=== PATIENT | male | born 1960 | race Caucasian/White ===

== ENCOUNTER 2017-04-02 08:03 | Emergency (ER) | payer OTHER ==
[~2017-04-02] VITALS: Ht 177.8 cm; Wt 88.5 kg
[2017-04-02] MEDS ORDERED: AMITRIPTYLINE100 M1 PO (08:13)
[2017-04-02] MEDS ORDERED: ZESTRIL40 MG PO (08:13)
[2017-04-02] MEDS ORDERED: ROBAXIN-750750 MG PO (08:13)
[2017-04-02] MEDS ORDERED: NORVASC5 MG PO (08:14)
[2017-04-02] MEDS ORDERED: VESICARE10 MG PO (08:14)
[2017-04-02] MEDS ORDERED: BUSPIRONE15 MG PO (08:14)
[2017-04-02] MEDS ORDERED: OMEPRAZOLE40 MG PO (08:15)
[2017-04-02] MEDS ORDERED: MELOXICAM15 MG PO (08:15)
[2017-04-02 08:16] LABS: BASO % 0.2 % (0.0-1.0); EOS # 0.1 10*3/uL (0.0-0.4); EOS % 0.9 % (1.0-4.0); HEMATOCRIT 44.5 % (42.0-52.0); HEMOGLOBIN 14.9 g/dl (14.0-18.0); LYMPH # 4.6 10*3/uL (1.3-4.4); MEAN CELL VOLUME 89.2 fl (80.0-94.0); MEAN CORPUSCULAR HGB 29.9 pg (27.0-31.0); MEAN CORPUSCULAR HGB CONC 33.5 g/dl (33.0-37.0); MEAN PLATELET VOLUME 9.4 fl (9.6-12.3); MONO # 1.2 10*3/uL (0.1-1.0); MONO % 8.6 % (3.0-9.0); NEUT # 7.9 10*3/uL (2.3-7.9); NEUT % 56.9 % (47.0-73.0); PLATELET COUNT AUTOMATED 316 10*3/uL (130-400); RED BLOOD COUNT 4.99 10*6/uL (4.50-5.90); RED CELL DISTRI WIDTH 14.3 % (0-14.5); WHITE BLOOD COUNT 13.9 10*3/uL (4.8-10.8)
[2017-04-02 08:26] LABS: ACT PARTIAL THROMBO TIME 20.8 SECONDS (20.8-31.5); INTERNATIONAL NORM RATIO 1.1 (2.0-3.5)
[2017-04-02 08:34] LABS: ALBUMIN 3.8 gm/dl (3.1-4.5); ALKALINE PHOSPHATASE 64 U/L (45-117); BUN 19 mg/dl (7-24); CHLORIDE 105 mmol/L (98-107); CREATININE 0.96 mg/dL (0.70-1.30); MAGNESIUM 2.3 mg/dL (1.5-2.1); SGOT/AST 10 IU/L (3-35); SGPT/ALT 22 U/L (12-78); SODIUM 139 mmol/L (136-145); TOTAL PROTEIN 7.9 gm/dL (6.4-8.2)
[2017-04-02 08:38] LABS: TROPONIN I 0.106 ng/ml (<0.045)
== END 2017-04-02 10:56 | disposition short-term general hospital (02) ==
LOC: ED 08:03
PROVIDERS: Emergency Medicine
DX: I21.4 Non-ST elevation (NSTEMI) myocardial infarction (principal); I10 Essential (primary) hypertension; F17.200 Nicotine dependence, unspecified, uncomplicated; Z79.899 Other long term (current) drug therapy; Z85.46 Personal history of malignant neoplasm of prostate

== ENCOUNTER 2020-06-18 12:14 | Emergency (ER) | payer OTHER ==
[~2020-06-18] VITALS: Ht 175.2 cm; Wt 97.1 kg
[~2020-06-18 12:14] MED LIST: ABILIFY5 MG PO; AMITRIPTYLINE100 M1 PO; BRILINTA90 M1 PO; BUSPIRONE15 MG PO; IMDUR SA30 MG PO; MELOXICAM15 MG PO; NORVASC5 MG PO; OMEPRAZOLE40 MG PO; OXYBUTYNIN5 MG PO; ROBAXIN-750750 MG PO; ROSUVASTATIN CA20 MG PO; TOPROL XL25 MG PO; TYLENOL325 M1 PO; VESICARE10 MG PO; ZESTRIL40 MG PO
== END 2020-06-18 13:16 | disposition home or self-care (01) ==
LOC: ED 12:14
DX: J02.9 Acute pharyngitis, unspecified (principal); Z20.828 Contact with and (suspected) exposure to other viral communicable diseases; Z79.899 Other long term (current) drug therapy

== ENCOUNTER 2020-10-18 19:01 | Observation (INO) | payer OTHER ==
[2020-10-18] VITALS (11 sets, daily range): BP systolic 115–166; BP diastolic 77–110
[~2020-10-18] VITALS: Ht 177.8 cm; Wt 92.2 kg
[2020-10-18 19:29] LABS: BASO % 0.4 % (0.0-1.0); EOS # 0.1 10*3/uL (0.0-0.4); EOS % 1.2 % (1.0-4.0); HEMATOCRIT 43.4 % (42.0-52.0); LYMPH # 2.7 10*3/uL (1.3-4.4); LYMPH % 35.5 % (27.0-41.0); MEAN CELL VOLUME 89.5 fl (80.0-94.0); MEAN CORPUSCULAR HGB 29.1 pg (27.0-31.0); MEAN CORPUSCULAR HGB CONC 32.5 g/dl (33.0-37.0); MONO # 0.7 10*3/uL (0.1-1.0); MONO % 8.7 % (3.0-9.0); NEUT # 4.1 10*3/uL (2.3-7.9); NEUT % 54.1 % (47.0-73.0); PLATELET COUNT AUTOMATED 299 10*3/uL (130-400); RED BLOOD COUNT 4.85 10*6/uL (4.50-5.90); WHITE BLOOD COUNT 7.5 10*3/uL (4.8-10.8)
[2020-10-18 19:40] LABS: ACT PARTIAL THROMBO TIME 27.9 SECONDS (20.0-32.1); INTERNATIONAL NORM RATIO 1.1 (2.0-3.5)
[2020-10-18 19:51] LABS: ALBUMIN 4.1 gm/dl (3.1-4.5); ALKALINE PHOSPHATASE 54 U/L (45-117); BUN 12 mg/dl (7-24); CHLORIDE 105 mmol/L (98-107); CREATININE 0.99 mg/dL (0.70-1.30); SGOT/AST 12 IU/L (3-35); SGPT/ALT 29 U/L (12-78); SODIUM 140 mmol/L (136-145); TOTAL PROTEIN 8.4 gm/dL (6.4-8.2)
[2020-10-18 19:52] LABS: TROPONIN I < 0.015 ng/ml (<0.045)
[2020-10-19 00:30] VITALS: BP 140/88
[2020-10-19] MEDS ORDERED: AMITRIPTYLINE100 M1 PO (00:39)
[2020-10-19] MEDS ORDERED: GLUCOPHAGE500 M1 PO (00:41)
[2020-10-19 06:24] LABS: BASO % 0.5 % (0.0-1.0); EOS # 0.2 10*3/uL (0.0-0.4); EOS % 2.6 % (1.0-4.0); HEMATOCRIT 41.2 % (42.0-52.0); LYMPH % 40.5 % (27.0-41.0); MEAN CORPUSCULAR HGB 28.6 pg (27.0-31.0); MEAN CORPUSCULAR HGB CONC 31.8 g/dl (33.0-37.0); MEAN PLATELET VOLUME 9.8 fl (9.6-12.3); MONO # 0.8 10*3/uL (0.1-1.0); MONO % 10.8 % (3.0-9.0); NEUT # 3.4 10*3/uL (2.3-7.9); NEUT % 45.5 % (47.0-73.0); PLATELET COUNT AUTOMATED 302 10*3/uL (130-400); RED BLOOD COUNT 4.58 10*6/uL (4.50-5.90); RED CELL DISTRI WIDTH 15.3 % (0-14.5); WHITE BLOOD COUNT 7.4 10*3/uL (4.8-10.8)
[2020-10-19 06:57] LABS: BUN 15 mg/dl (7-24); CHLORIDE 108 mmol/L (98-107); CHOLESTEROL 118 mg/dL (<200); CREATININE 0.83 mg/dL (0.70-1.30); HDL CHOLESTEROL 52 mg/dl (40-60); LDL CHOLESTEROL 42 mg/dL (9-159); POTASSIUM 4.1 mmol/L (3.5-5.1); SODIUM 140 mmol/L (136-145); TRIGLYCERIDES 122 mg/dl (<150); VLDL CHOLESTEROL 24 mg/dL (6-40)
[2020-10-19 08:00] VITALS: BP 113/69
[2020-10-19] MEDS ORDERED: BUSPIRONE15 MG PO (09:36)
[2020-10-19] MEDS ORDERED: CLOPIDOGREL75 MG PO (09:36)
[2020-10-19] MEDS ORDERED: MELOXICAM15 MG PO (09:37)
[2020-10-19 12:00] VITALS: BP 111/64
[2020-10-19 16:00] VITALS: BP 97/71
[2020-10-19 20:00] VITALS: BP 114/72
[2020-10-20] VITALS: BP 107/65
[2020-10-20 06:08] LABS: BASO # 0.1 10*3/uL (0.0-0.1); BASO % 0.7 % (0.0-1.0); EOS # 0.2 10*3/uL (0.0-0.4); EOS % 3.4 % (1.0-4.0); HEMATOCRIT 41.3 % (42.0-52.0); LYMPH % 43.2 % (27.0-41.0); MEAN CELL VOLUME 89.6 fl (80.0-94.0); MEAN CORPUSCULAR HGB 28.9 pg (27.0-31.0); MEAN CORPUSCULAR HGB CONC 32.2 g/dl (33.0-37.0); MEAN PLATELET VOLUME 9.6 fl (9.6-12.3); MONO # 0.9 10*3/uL (0.1-1.0); MONO % 12.6 % (3.0-9.0); NEUT # 2.8 10*3/uL (2.3-7.9); NEUT % 39.8 % (47.0-73.0); PLATELET COUNT AUTOMATED 293 10*3/uL (130-400); RED BLOOD COUNT 4.61 10*6/uL (4.50-5.90); RED CELL DISTRI WIDTH 15.5 % (0-14.5)
[2020-10-20 06:15] LABS: CHLORIDE 107 mmol/L (98-107); POTASSIUM 3.9 mmol/L (3.5-5.1); SODIUM 138 mmol/L (136-145)
[2020-10-20 06:18] LABS: CREATININE 0.92 mg/dL (0.70-1.30)
[2020-10-20 06:23] LABS: BUN 25 mg/dl (7-24)
[2020-10-20 08:00] VITALS: BP 112/65
[2020-10-20 12:00] VITALS: BP 134/85
[2020-10-20] MEDS ORDERED: NITROSTAT0.3 M1 SL (13:59)
== END 2020-10-20 14:14 | disposition home or self-care (01) ==
LOC: ED 19:01 → EDHOLD 21:42 → 4E 23:27
PROVIDERS: Emergency Medicine; Internal Medicine; ADMIT Family Medicine; ATTEND Family Medicine
DX: R07.89 Other chest pain (principal); R06.09 Other forms of dyspnea; R00.0 Tachycardia, unspecified; I25.10 Atherosclerotic heart disease of native coronary artery without angina pectoris; I10 Essential (primary) hypertension; E78.5 Hyperlipidemia, unspecified; R73.9 Hyperglycemia, unspecified; F32.9 Major depressive disorder, single episode, unspecified; G89.29 Other chronic pain; M54.9 Dorsalgia, unspecified; F41.9 Anxiety disorder, unspecified; R44.3 Hallucinations, unspecified; D64.9 Anemia, unspecified; E83.41 Hypermagnesemia; E55.9 Vitamin D deficiency, unspecified; Z98.890 Other specified postprocedural states; Z85.46 Personal history of malignant neoplasm of prostate; Z95.5 Presence of coronary angioplasty implant and graft

== ENCOUNTER 2021-02-13 21:12 | Inpatient (IN) | payer OTHER ==
[~2021-02-13] VITALS: Ht 177.8 cm; Wt 88.6 kg
[~2021-02-13 21:12] MED LIST changes: +CLOPIDOGREL75 MG PO; +GLUCOPHAGE500 M1 PO; +NITROSTAT0.3 M1 SL
[2021-02-13 21:36] VITALS: BP 134/79
[2021-02-13 22:50] LABS: BASO # 0.1 10*3/uL (0.0-0.1); BASO % 0.4 % (0.0-1.0); EOS # 0.3 10*3/uL (0.0-0.4); EOS % 2.2 % (1.0-4.0); HEMATOCRIT 40.4 % (42.0-52.0); LYMPH # 2.7 10*3/uL (1.3-4.4); LYMPH % 22.7 % (27.0-41.0); MEAN CELL VOLUME 89.2 fl (80.0-94.0); MEAN CORPUSCULAR HGB 29.1 pg (27.0-31.0); MEAN CORPUSCULAR HGB CONC 32.7 g/dl (33.0-37.0); MEAN PLATELET VOLUME 9.2 fl (9.6-12.3); MONO # 1.3 10*3/uL (0.1-1.0); MONO % 11.4 % (3.0-9.0); NEUT # 7.4 10*3/uL (2.3-7.9); NEUT % 63.1 % (47.0-73.0); PLATELET COUNT AUTOMATED 284 10*3/uL (130-400); RED BLOOD COUNT 4.53 10*6/uL (4.50-5.90); RED CELL DISTRI WIDTH 13.5 % (0-14.5); WHITE BLOOD COUNT 11.8 10*3/uL (4.8-10.8)
[2021-02-13 23:08] LABS: ALBUMIN 3.6 gm/dl (3.1-4.5); ALKALINE PHOSPHATASE 53 U/L (45-117); BUN 44 mg/dl (7-24); CHLORIDE 104 mmol/L (98-107); CREATININE 3.81 mg/dL (0.70-1.30); LIPASE 185 U/L (73-393); POTASSIUM 3.6 mmol/L (3.5-5.1); SGOT/AST 23 IU/L (3-35); SGPT/ALT 25 U/L (12-78); SODIUM 135 mmol/L (136-145); TOTAL PROTEIN 7.7 gm/dL (6.4-8.2)
[2021-02-13 23:09] LABS: ETHYL ALCOHOL < 3.0 mg/dl (<3); TROPONIN I < 0.015 ng/ml (<0.045)
[2021-02-14] VITALS (9 sets, daily range): BP systolic 82–132; BP diastolic 50–68
[2021-02-14] MEDS ORDERED: MELATONIN3 MG PO (03:06)
[2021-02-14 05:47] LABS: ALBUMIN 3.6 gm/dl (3.1-4.5); CREATININE 4.12 mg/dL (0.70-1.30); POTASSIUM 3.1 mmol/L (3.5-5.1)
[2021-02-14 06:17] LABS: BASO # 0.1 10*3/uL (0.0-0.1); BASO % 0.5 % (0.0-1.0); EOS # 0.3 10*3/uL (0.0-0.4); EOS % 2.9 % (1.0-4.0); HEMATOCRIT 37.4 % (42.0-52.0); LYMPH # 3.3 10*3/uL (1.3-4.4); LYMPH % 34.8 % (27.0-41.0); MEAN CORPUSCULAR HGB 29.4 pg (27.0-31.0); MEAN CORPUSCULAR HGB CONC 32.4 g/dl (33.0-37.0); MEAN PLATELET VOLUME 9.8 fl (9.6-12.3); MONO # 1.1 10*3/uL (0.1-1.0); MONO % 11.9 % (3.0-9.0); NEUT # 4.7 10*3/uL (2.3-7.9); NEUT % 49.6 % (47.0-73.0); PLATELET COUNT AUTOMATED 256 10*3/uL (130-400); RED BLOOD COUNT 4.11 10*6/uL (4.50-5.90); RED CELL DISTRI WIDTH 13.7 % (0-14.5); WHITE BLOOD COUNT 9.5 10*3/uL (4.8-10.8)
[2021-02-14 09:19] LABS: BILIRUBIN Negative (Negative); BLOOD 1+ (Negative); CLARITY Cloudy (Clear); COLOR Yellow (Yellow); GLUCOSE Negative (Negative); KETONE Negative (Negative); LEUKO ESTERASE 1+ (Negative); NITRITE Negative (Negative); SPECIFIC GRAVITY 1.015 (1.001-1.030)
[2021-02-14 09:27] LABS: URINE CANNABINOIDS (THC) < 50 (50ng/ml); URINE METHADONE < 300 (300ng/ml); URINE OPIATES < 300 (300ng/ml)
[2021-02-14 09:29] LABS: URINE PHENCYCLIDINE < 25 (25ng/ml)
[2021-02-14 09:30] LABS: URINE CHLORIDE, RANDOM < 10 mmol/L
[2021-02-14 09:35] LABS: BACTERIA 2+; EPITHELIAL CELLS 16-20; WBC 21-30 wbc/hpf (0-5)
[2021-02-14 09:40] LABS: URINE AMPHETAMINES > 1000 (1000ng/ml); URINE BARBITURATES < 200 (200ng/ml); URINE BENZODIAZEPINES < 200 (200ng/ml); URINE COCAINE < 300 (300ng/ml)
[2021-02-15] VITALS: BP 117/69
[2021-02-15 04:44] LABS: BASO % 0.5 % (0.0-1.0); EOS # 0.2 10*3/uL (0.0-0.4); EOS % 3.8 % (1.0-4.0); HEMATOCRIT 35.5 % (42.0-52.0); LYMPH # 2.3 10*3/uL (1.3-4.4); LYMPH % 36.1 % (27.0-41.0); MEAN CELL VOLUME 89.9 fl (80.0-94.0); MEAN CORPUSCULAR HGB 29.6 pg (27.0-31.0); MEAN PLATELET VOLUME 9.4 fl (9.6-12.3); MONO # 0.7 10*3/uL (0.1-1.0); MONO % 10.6 % (3.0-9.0); NEUT # 3.1 10*3/uL (2.3-7.9); NEUT % 48.8 % (47.0-73.0); PLATELET COUNT AUTOMATED 224 10*3/uL (130-400); RED BLOOD COUNT 3.95 10*6/uL (4.50-5.90); RED CELL DISTRI WIDTH 13.4 % (0-14.5); WHITE BLOOD COUNT 6.4 10*3/uL (4.8-10.8)
[2021-02-15 04:59] LABS: CHLORIDE 114 mmol/L (98-107); CREATININE 1.18 mg/dL (0.70-1.30); POTASSIUM 3.8 mmol/L (3.5-5.1); SODIUM 139 mmol/L (136-145)
[2021-02-15 05:04] LABS: BUN 28 mg/dl (7-24)
[2021-02-15 08:00] VITALS: BP 124/73
[2021-02-15 12:00] VITALS: BP 130/71
[2021-02-15] MEDS ORDERED: MECLIZINE HCL25 M2 PO (12:03)
[2021-02-15] MEDS ORDERED: VITAMIN E400 UNI3 PO (12:13)
[2021-02-15] MEDS ORDERED: ROPINIROLE HY0.25 MG PO (12:13)
[2021-02-15] MEDS ORDERED: MIRTAZAPINE15 M2 PO (12:13)
== END 2021-02-15 13:17 | disposition home or self-care (01) | DRG 640 ==
LOC: ED 21:12 → 4E 02-14 01:27 → EDHOLD 02-14 01:27 → 4E 02-14 01:53
PROVIDERS: Internal Medicine; Physician Assistant; Student in an Organized Health Care Education/Training Program; ADMIT Internal Medicine; ATTEND Internal Medicine
DX: E86.0 Dehydration (principal); N17.0 Acute kidney failure with tubular necrosis; E87.1 Hypo-osmolality and hyponatremia; G25.81 Restless legs syndrome; F12.10 Cannabis abuse, uncomplicated; I25.10 Atherosclerotic heart disease of native coronary artery without angina pectoris; G89.29 Other chronic pain; M54.9 Dorsalgia, unspecified; F32.9 Major depressive disorder, single episode, unspecified; E78.5 Hyperlipidemia, unspecified; F41.1 Generalized anxiety disorder; G47.00 Insomnia, unspecified; D64.9 Anemia, unspecified; R73.9 Hyperglycemia, unspecified; E87.6 Hypokalemia; E83.41 Hypermagnesemia; Z91.018 Allergy to other foods; Z95.5 Presence of coronary angioplasty implant and graft; Z83.3 Family history of diabetes mellitus; Z82.49 Family history of ischemic heart disease and other diseases of the circulatory system; Z80.52 Family history of malignant neoplasm of bladder; Z86.19 Personal history of other infectious and parasitic diseases; Z85.46 Personal history of malignant neoplasm of prostate

== ENCOUNTER 2021-04-17 12:39 | Inpatient (IN) | payer OTHER ==
[~2021-04-17] VITALS: Ht 175.3 cm; Wt 93.2 kg
[~2021-04-17 12:39] MED LIST changes: +MECLIZINE HCL25 M2 PO; +MELATONIN3 MG PO; +MIRTAZAPINE15 M2 PO; +ROPINIROLE HY0.25 MG PO; +VITAMIN E400 UNI3 PO
[2021-04-17 12:50] VITALS: BP 40/00
[2021-04-17 13:00] VITALS: BP 70/38
[2021-04-17 13:23] LABS: BASO % 0.2 % (0.0-1.0); EOS % 0.2 % (1.0-4.0); HEMATOCRIT 38.2 % (42.0-52.0); LYMPH # 2.4 10*3/uL (1.3-4.4); LYMPH % 17.5 % (27.0-41.0); MEAN CELL VOLUME 90.7 fl (80.0-94.0); MEAN CORPUSCULAR HGB CONC 31.9 g/dl (33.0-37.0); MEAN PLATELET VOLUME 9.9 fl (9.6-12.3); MONO # 1.5 10*3/uL (0.1-1.0); MONO % 10.6 % (3.0-9.0); NEUT # 9.8 10*3/uL (2.3-7.9); NEUT % 71.2 % (47.0-73.0); PLATELET COUNT AUTOMATED 312 10*3/uL (130-400); RED BLOOD COUNT 4.21 10*6/uL (4.50-5.90); RED CELL DISTRI WIDTH 14.6 % (0-14.5); WHITE BLOOD COUNT 13.7 10*3/uL (4.8-10.8)
[2021-04-17 13:48] LABS: ALBUMIN 3.6 gm/dl (3.1-4.5); ALKALINE PHOSPHATASE 51 U/L (45-117); BUN 61 mg/dl (7-24); CHLORIDE 100 mmol/L (98-107); CPK 724 U/L (39-308); CREATININE 6.38 mg/dL (0.70-1.30); POTASSIUM 4.5 mmol/L (3.5-5.1); SGOT/AST 26 IU/L (3-35); SGPT/ALT 26 U/L (12-78); SODIUM 133 mmol/L (136-145); TOTAL PROTEIN 7.7 gm/dL (6.4-8.2); TROPONIN I < 0.015 ng/ml (<0.045)
[2021-04-17 14:00] VITALS: BP 56/35
[2021-04-17 14:10] LABS: BILIRUBIN Negative (Negative); BLOOD 3+ (Negative); CLARITY Turbid (Clear); COLOR Dark Yellow (Yellow); GLUCOSE Trace (Negative); KETONE 1+ (Negative); LEUKO ESTERASE 2+ (Negative); NITRITE Negative (Negative); SPECIFIC GRAVITY >= 1.030 (1.001-1.030)
[2021-04-17 14:41] LABS: RBC 16-20 rbc/hpf (0-2); WBC 41-50 wbc/hpf (0-5)
[2021-04-17 14:42] LABS: BACTERIA 3+
[2021-04-17 14:48] LABS: URINE AMPHETAMINES > 1000 (1000ng/ml); URINE BARBITURATES < 200 (200ng/ml); URINE BENZODIAZEPINES < 200 (200ng/ml); URINE CANNABINOIDS (THC) < 50 (50ng/ml); URINE COCAINE < 300 (300ng/ml); URINE METHADONE < 300 (300ng/ml); URINE OPIATES < 300 (300ng/ml)
[2021-04-17 14:49] LABS: URINE PHENCYCLIDINE < 25 (25ng/ml)
[2021-04-17 17:34] VITALS: BP 99/35
[2021-04-17 17:50] VITALS: BP 94/59
[2021-04-17] MEDS ORDERED: VITAMIN B-125000 MCG SL (18:18)
[2021-04-17] MEDS ORDERED: NEURONTIN600 MG PO (18:22)
[2021-04-17] MEDS ORDERED: QUALITY CHOICE81 M1 PO (18:26)
[2021-04-17] MEDS ORDERED: ROPINIROLE HYDRO1 MG PO (18:27)
[2021-04-17] MEDS ORDERED: MECLIZINE HYD12.5 MG PO (18:29)
[2021-04-17] MEDS ORDERED: TRAZODONE50 MG PO (18:31)
[2021-04-17 20:00] VITALS: BP 95/50
[2021-04-18] VITALS: BP 101/53
[2021-04-18 04:00] VITALS: BP 99/57
[2021-04-18 05:49] LABS: CREATININE 2.1 mg/dL (0.70-1.30); POTASSIUM 4.5 mmol/L (3.5-5.1); TOTAL PROTEIN 6.8 gm/dL (6.4-8.2)
[2021-04-18 06:14] LABS: BASO % 0.3 % (0.0-1.0); EOS # 0.2 10*3/uL (0.0-0.4); EOS % 1.9 % (1.0-4.0); LYMPH # 1.8 10*3/uL (1.3-4.4); LYMPH % 18.5 % (27.0-41.0); MEAN CELL VOLUME 92.3 fl (80.0-94.0); MEAN CORPUSCULAR HGB 29.2 pg (27.0-31.0); MEAN CORPUSCULAR HGB CONC 31.6 g/dl (33.0-37.0); MEAN PLATELET VOLUME 10.1 fl (9.6-12.3); MONO # 1.2 10*3/uL (0.1-1.0); MONO % 12.3 % (3.0-9.0); NEUT # 6.5 10*3/uL (2.3-7.9); NEUT % 66.8 % (47.0-73.0); PLATELET COUNT AUTOMATED 273 10*3/uL (130-400); RED BLOOD COUNT 4.01 10*6/uL (4.50-5.90); RED CELL DISTRI WIDTH 14.6 % (0-14.5); WHITE BLOOD COUNT 9.7 10*3/uL (4.8-10.8)
[2021-04-18 08:00] VITALS: BP 94/54
[2021-04-18 12:00] VITALS: BP 111/58
[2021-04-18 16:00] VITALS: BP 102/63
[2021-04-18 20:00] VITALS: BP 118/61
[2021-04-19] VITALS: BP 137/71
[2021-04-19 06:16] LABS: BASO % 0.5 % (0.0-1.0); EOS # 0.2 10*3/uL (0.0-0.4); EOS % 2.6 % (1.0-4.0); HEMATOCRIT 34.2 % (42.0-52.0); LYMPH # 2.3 10*3/uL (1.3-4.4); LYMPH % 35.9 % (27.0-41.0); MEAN CELL VOLUME 91.9 fl (80.0-94.0); MEAN CORPUSCULAR HGB 29.3 pg (27.0-31.0); MEAN CORPUSCULAR HGB CONC 31.9 g/dl (33.0-37.0); MEAN PLATELET VOLUME 10.1 fl (9.6-12.3); MONO # 0.8 10*3/uL (0.1-1.0); MONO % 12.4 % (3.0-9.0); NEUT # 3.1 10*3/uL (2.3-7.9); NEUT % 48.3 % (47.0-73.0); PLATELET COUNT AUTOMATED 253 10*3/uL (130-400); RED BLOOD COUNT 3.72 10*6/uL (4.50-5.90); RED CELL DISTRI WIDTH 14.6 % (0-14.5); WHITE BLOOD COUNT 6.5 10*3/uL (4.8-10.8)
[2021-04-19 06:21] LABS: CHLORIDE 116 mmol/L (98-107); POTASSIUM 4.7 mmol/L (3.5-5.1); SODIUM 141 mmol/L (136-145)
[2021-04-19 06:23] LABS: BUN 19 mg/dl (7-24)
[2021-04-19 08:00] VITALS: BP 128/62
== END 2021-04-19 11:15 | disposition home or self-care (01) | DRG 871 ==
LOC: ED 12:39 → ICCU 14:55 → EDHOLD 14:55 → ICCU 17:01 → 5E 04-18 20:21
PROVIDERS: Emergency Medicine; Hospitalist; Student in an Organized Health Care Education/Training Program; ADMIT Student in an Organized Health Care Education/Training Program; ATTEND Student in an Organized Health Care Education/Training Program
DX: A41.9 Sepsis, unspecified organism (principal); N17.0 Acute kidney failure with tubular necrosis; N30.01 Acute cystitis with hematuria; E87.1 Hypo-osmolality and hyponatremia; M62.82 Rhabdomyolysis; E44.0 Moderate protein-calorie malnutrition; B19.20 Unspecified viral hepatitis C without hepatic coma; W19.XXXA Unspecified fall, initial encounter; G25.81 Restless legs syndrome; D64.9 Anemia, unspecified; F15.10 Other stimulant abuse, uncomplicated; I25.10 Atherosclerotic heart disease of native coronary artery without angina pectoris; I95.9 Hypotension, unspecified; R65.20 Severe sepsis without septic shock; F41.9 Anxiety disorder, unspecified; I10 Essential (primary) hypertension; E78.5 Hyperlipidemia, unspecified; M54.5 Low back pain; G89.29 Other chronic pain; E87.8 Other disorders of electrolyte and fluid balance, not elsewhere classified; R73.9 Hyperglycemia, unspecified; R73.03 Prediabetes; E83.41 Hypermagnesemia; Z95.5 Presence of coronary angioplasty implant and graft; Z91.018 Allergy to other foods; Z91.010 Allergy to peanuts; Z82.0 Family history of epilepsy and other diseases of the nervous system; Z82.49 Family history of ischemic heart disease and other diseases of the circulatory system; Z79.899 Other long term (current) drug therapy; Y93.89 Activity, other specified; Y92.89 Other specified places as the place of occurrence of the external cause; Y99.8 Other external cause status; Z68.31 Body mass index [BMI] 31.0-31.9, adult